=== PATIENT | female | born 2000 | race Caucasian/White ===

== ENCOUNTER 2023-07-02 07:10 | Emergency (ER) | payer MEDICAID, SELFPAY ==
[2023-07-02 07:17] VITALS: BP 124/66; PULSE 87; RESP 18; TEMP 36.7; O2SAT 96; BMI 25.6
--- NOTE | 2023-07-02 07:32 | ED_ITS ---
HPI - General Adult General Chief complaint: General Medical Stated complaint: medication refill Time Seen by Provider: 07/02/23 07:25 Source: patient Mode of arrival: ambulatory Limitations: no limitations History of Present Illness HPI narrative: Patient is a 22-year-old female with history of genital herpes presenting to the emergency department complaining of an outbreak since night. Complains of genital itching and burning. States she does not have any refills of her acyclovir and is requesting this medication. She denies any other symptoms, denies fevers, abdominal pain, abnormal vaginal discharge. MD complaint: Genital pain Onset (ago): day(s) Location: genitals Severity: severe Quality: burning Pain Consistency: constant Associated symptoms: denies other symptoms Treatments prior to arrival: none Related Data Previous Rx's Medication Instructions Recorded acyclovir 800 mg tablet 800 mg PO TID #6 tabs 07/02/23 Allergies Allergy/AdvReac Type Severity Reaction Status Date / Time kiwi [KIWI] Allergy Unknown LIP Verified 07/02/23 07:19 SWELLING Review of Systems Review of Systems: As per HPI. Yes all other systems are reviewed and are negative Constitutional: Constitutional: Reports as per HPI Physical Exam ED Vital Signs: Vital Signs - 24 hr 07/02/23 07:17 Temperature 98.1 F Pulse Rate 87 Respiratory Rate 18 Blood Pressure 124/66 Pulse Oximetry 96 Oxygen Delivery Method Room Air BMI result Body Mass Index 25.6 Vital signs have been reviewed and appear to be correct. Blood pressure normal. Heart rate normal. Respiratory rate normal. Temperature normal. Oxygen saturation normal. Const General: cooperative, healthy appearing and no acute distress Orientation/consciousness: oriented to person, oriented to place, oriented to time and patient oriented x3 Limitations: no limitations [facility] Head: Yes normocephalic and Yes atraumatic Ears: external ears normal General nose exam: Normal external nose present Face and sinus: Yes face symmetric Mouth: oropharynx normal and moist mucous membranes Throat: Yes uvula midline Eyes Pupils: Equal, round and reactive pupils present Neck Neck: Yes normal visual inspection and Yes supple Resp Effort & Inspection: normal respiratory effort and able to speak in complete sen tences Auscultation: clear to auscultation bilaterally Cardio Rate: regular rate Rhythm: regular rhythm Heart sounds: S1 normal heart sound present and S2 normal heart sound present GI Palpation (GI): Soft to palpation and nontender Auscultation: normoactive bowel sounds General: Yes no CVA tenderness Back/Spine/Pelvis Back: no CVA tenderness Skin General skin exam: elasticity normal and turgor normal Neuro General: oriented to person, oriented to place, oriented to time, patient oriented x3, moves all extremities, no focal motor deficits and CN's II-XI intact bilaterally Cranial nerves: Yes Equal, round and reactive pupils present Cognition (Neuro): normal cognition Extrem General: Yes full ROM, Yes no pedal edema and Yes no calf tenderness Psych Mental Status: mental status grossly normal Affect: normal affect Thought process: Normal thought process present Medical Decision Making Medical Decision Making MDM Narrative: Patient is a 22-year-old female with history of genital herpes presenting to the emergency department complaining of an outbreak since night. On exam patient is awake, A+Ox3, VS WNL, afebrile, normal neurological exam without focal deficits, physical exam findings as above. Given reported symptoms and physical exam findings, initial differential includes genital herpes outbreak. Patient with history of known HSV, will send prescription for acyclovir to pharmacy. Instructed patient to follow up with PCP or [facility] REGISTERED NURSE. Return precautions discussed. Differential Diagnosis Differential Diagnoses: The differential diagnosis associated with the presentation includes HSV, vulvovaginal candidiasis, BV External Record Review External record reviewed: Inpatient record, Office record and Outpatient record Prescription Management I considered prescription management with: Antiviral Discharge Plan Discharge Clinical Impression: Genital HSV Patient Disposition: Home, Self-Care Instructions: Genital Herpes Simplex (ED), Sexually Transmitted Diseases (ED) Additional Instructions: You are being prescribed acyclovir for your genital herpes infection. Please take the full course of medication as prescribed. Do not have intercourse until your symptoms have fully resolved. Please follow up with your primary care provider or [facility] REGISTERED NURSE. Prescriptions: New acyclovir 800 mg tablet 800 mg PO TID Qty: 6 0RF
== END 2023-07-02 07:46 | disposition home or self-care (01) ==
PROVIDERS: Emergency Provider Emergency Medicine
DX: A60.04 Herpesviral vulvovaginitis (principal); R10.2 Pelvic and perineal pain
CPT/HCPCS: 99282

== ENCOUNTER 2024-11-23 00:17 | Emergency (ER) | payer OTHER, SELFPAY ==
[2024-11-23 00:30] VITALS: BP 116/70; PULSE 87; RESP 20; TEMP 36.9; O2SAT 97; BMI 45.7
--- NOTE | 2024-11-23 00:53 | ED.DENTAL ---
HPI - Dental/Oral General Chief complaint: Dental/Oral Stated complaint: dental pain Time Seen by Provider: 11/23/24 00:37 Source: patient Mode of arrival: ambulatory Limitations: no limitations History of Present Illness ED Provider: Dr. Chuyita Romero HPI Narrative: patient comes to the emergency room complaining of dental pain. Patient states that for the last 3 months, she has a cracked wisdom tooth in the right maxillary side. Patient states that for the last few days it has been hurting quite a bit with no relief after taking Advil. Patient is fever chills. Patient states that she has a referral from her dentist to be seen by the maxillofacial surgeon. Related Data Previous Rx's ?Medication ?Instructions ?Recorded acyclovir 800 mg tablet 800 mg PO TID #6 tabs 07/02/23 clindamycin HCl 150 mg capsule 150 mg PO TID 7 days #21 caps 11/23/24 (Cleocin HCl) ketorolac 10 mg tablet 10 mg PO Q8H PRN pain #12 tabs 11/23/24 Allergies Allergy/AdvReac Type Severity Reaction Status Date / Time kiwi (KIWI) Allergy Unknown LIP Verified 07/02/23 07:19 SWELLING amoxicillin Allergy Hives Verified 11/23/24 00:31 Review of Systems Review of Systems: Constitutional : No Weight loss, No Fever, No Chills, No Night Sweats, No Fatigue, No Malaise ENT/Mouth : Complaining of dental pain in the right maxillary side, No Hearing loss, No Ear Pain, No Nasal Congestion, No Sinus Pain, No Hoarseness, No sore throat, No Rhinorrhea, No Swallowing Difficulty Eyes: No Eye Pain, No Swelling, No Redness, No Foreign Body, No Discharge, No Vision Changes Cardiovascular : No Chest Pain, No SOB, No Dyspnea on Exertion, No Orthopnea, No Edema, No Palpitations Respiratory : No Cough, No Sputum, No Wheezing, No Smoke Exposure, No Dyspnea Gastrointestinal : No Nausea, No Vomiting, No Diarrhea, No Constipation, No abdominal Pain, No Hematochezia, No Melena Genitourinary : no irregular bleeding, No Dysuria, No Urinary Frequency, No Hematuria, No Urinary Incontinence, No Urgency, No Flank Pain, No Urinary Flow Changes, No Hesitancy Musculoskeletal : No joint pain, No Myalgias, No Joint Swelling Skin : No Skin Lesions, No rash Neuro : No Weakness, No Numbness, No Paresthesias, No Loss of Consciousness, No Dizziness, No Headache Psych : No Anxiety/Panic, No Depression, No SI/HI/AH/VH, No Social Issues, Heme/Lymph: No Bruising, No Bleeding,No Lymphadenopathy Endocrine : No Polyuria, No Polydipsia, No Temperature Intolerance Physical Exam Vital Signs: Vital Signs: Last Vital Signs Temp 98.5 F 11/23/24 00:30 Pulse 87 11/23/24 00:30 Resp 20 11/23/24 00:30 BP 116/70 11/23/24 00:30 Pulse Ox 97 11/23/24 00:30 O2 Del Method Room Air 11/23/24 00:30 BMI result Body Mass Index 45.7 Const: Other: Appearance: Alert. Oriented X3. No acute distress. Eyes: Pupils equal, round and reactive to light. ENT: Pharynx normal. normal tongue, no oral mucosa vesicles. Patient has a cracked molar on the right maxillary side. No obvious abscess that could possibly be drained Neck: Normal inspection. Neck supple. No lymph nodes noted. No crepitus CVS: Normal heart rate and rhythm. Pulses normal. Normal S1 and S2 Respiratory: No respiratory distress. Breath sounds normal. No Wheezing. No rales Abdomen: Soft and nontender. No rigidity. No distention. Skin: Skin warm and dry. Normal skin color. Normal skin turgor. Extremities: No lower extremity edema. No Lacerations. No Rash Neuro: Oriented X 3. No motor deficit. No sensory deficit. Moving all extremities. No slurred speech. CN 2 through 12 grossly intact Psych: calm, cooperative, normal affect Medical Decision Making Medical Decision Making MDM Narrative: I discussed with the patient that she needs to be seen by her dentist as soon as possible. Also, I discussed with the patient that the antibiotic that she is getting, clindamycin, may cause intestinal complications. Patient instructed to take probiotics and eat yogurt to help her intestinal for. Patient agrees with plan. Here in the emergency room patient received the 1st dose of clindamycin and IM ketorolac Discharge Plan Discharge Clinical Impression: Toothache Patient Disposition: Home, Self-Care Instructions: Toothache (ED) Additional Instructions: Please follow-up with your primary care physician and dentist tomorrow. If you have any worsening or new symptoms, please return to the emergency room or call 911 Prescriptions: New clindamycin HCl [Cleocin HCl] 150 mg capsule 150 mg PO TID 7 Days Qty: 21 0RF ketorolac 10 mg tablet 10 mg PO Q8H PRN (Reason: pain) Qty: 12 0RF Rx Instructions: do not use this medication with NSAIDs, ibuprofen. No Action acyclovir 800 mg tablet 800 mg PO TID Qty: 6 0RF Print Language: Bengali
--- NOTE | 2024-11-23 01:15 | PC.NURSE ---
Clindamycin 150 mg PO is not given, medication is not available. Dr. Romero made aware. Per , REGINA not to administer Clindamycin at ED, patient to burr pick[facility] Clidamycin from [facility] [address] Lenz after d/c from ED and take it immediately. Patient verbalized understanding.
[2024-11-23 01:20] VITALS: BP 116/70; PULSE 87; RESP 20; TEMP 36.9; O2SAT 97
== END 2024-11-23 01:21 | disposition home or self-care (01) ==
LOC: HO.ED 01:19
PROVIDERS: Emergency Provider Emergency Medicine
DX: K08.89 Other specified disorders of teeth and supporting structures (principal)
CPT/HCPCS: 96372; 99284; J1885